=== PATIENT | female | born 1940 | race Caucasian/White ===

== ENCOUNTER → 2017-01-24 | Outpatient (CLI) | payer MEDICARE ==
[~2017-01-24] MED LIST: ASPIRIN (CHILDR81 MG PO; BACLOFEN10 MG PO; HUMIBID LA (MU600 MG PO; HYDROCHLOROTHIA25 MG PO; LANTUS (IN100 UNIT/M SUB-Q; LIPITOR40 MG PO; LISINOPRIL10 MG PO; NOVOLOG100 UNIT/M SUB-Q; PLAVIX75 MG PO; PROTONIX40 MG PO; TYLENOL325 MG PO
--- NOTE | ~2017-01-24 | NDGEN ---
PATIENT'S NAME: ROSIE HOWELL [facility] AGE: 76 Y [address] ROOM: [place] [address] LOCATION: [facility] ADMIT DATE: 01/24/2017 Neurodiagnostics DISCHARGE DATE: FAMILY PHYSICIAN: ELIZABETH PERRY MD ATTENDING PHYSICIAN: Carmelo Silva PROCEDURE: ELECTROENCEPHALOGRAM DATE OF PROCEDURE: 01/24/2017 TEST: TECH: CLINICAL DIAGNOSIS: THE PATIENT IS A 76-YEAR-OLD FEMALE, WHO HAD EXPERIENCED SPONTANEOUS INVOLUNTARY MOVEMENTS OF HER LIMBS WITH TWITCHING AND JERKING OF THE LEFT SIDE. THIS EEG IS BEING DONE A FOLLOWUP. DURATION OF EE minutes. REASON FOR EEG: Brain lesion and abnormal exam. EEG FINDINGS: The patient is awake for the entire duration of the EEG. Activation procedures included photic stimulation between 3-30 hertz, which did not show any abnormalities. The patient had a good background of 11 to 12 hertz in the posterior head regions, which were symmetrical, rhythmical waxing and waning. CLASSIFICATION: Normal awake, 10/20 scalp electrodes. IMPRESSION: This EEG is within normal limits. No epileptiform discharges or EEG seizures were seen during this recording. MD VINCENZO PUTNAM/leonel /[id number] dtt: 01/30/17 [id number] SAMIA RAM MOHAN R. dtd: 01/27/17 1208
== END | disposition disaster alternative care site (69) ==
LOC: GRAD 10:43 → GNEU 04-16 08:00 → GRAD 04-16 09:00
PROVIDERS: Psychiatry & Neurology Neurology
DX: G93.89 Other specified disorders of brain (principal); R93.0 Abnormal findings on diagnostic imaging of skull and head, not elsewhere classified